=== PATIENT | male | born 1965 | race Caucasian/White ===

== ENCOUNTER 2016-06-20 19:33 | Emergency (ER) | payer OTHER ==
[2016-06-20 20:03] VITALS: BP 119/77
--- NOTE | 2016-06-20 21:01 | ED HAND/WRIST INJURY COMPLAINT ---
History of Present Illness General Chief Complaint: Hand or Wrist Injury Stated Complaint: PT HAS A SWOLLEN PINKIE FINGER Source: patient, old records Exam Limitations: no limitations Vital Signs & Intake/Output Vital Signs & Intake/Output Vital Signs Date Time Temp Pulse Resp B/P B/P Pulse O2 O2 Flow FiO2 Mean Ox Delivery Rate 06/20 2002 98.3 87 22 119/77 100 Allergies Coded Allergies: MDX - Avocados (AVOCADOS) (UNKNOWN 08/06/12) MDX - Cat Hair Extract (Cat Hair Extract) (CATS 06/21/11) Triage Note: PER PT L THUMB, BASE PAIN WHEN TWISTING JARS FOR MONTHS,ALSO ON 05/25 TRIPPED OVER DOG, SUSTAINED INJURY, 5TH DIGIT REMAINS DEFORMED LARGER THAN L 5TH DIGIT. OBVIOUS DEFORMITY NOTED BUT ALIGNED. Triage Nurses Notes Reviewed? yes Occurred: LAST MONTH Duration: intermittent, waxing and waning, X 1 MONTH Timing: recent history Injury Environment: home Severity: mild, moderate Severity Numbers: 5 Pain/Injury Location: Right: 5th finger. Left: 1st finger. Context: blow Method of Injury: direct blow Modifying Factors: Worsens With: movement. Associated Symptoms: none HPI: 51-year-old male presents emergency room for evaluation complaining of a one- month history of left first finger pain. He denies any known injury or trauma or states pain radiates from the IP joint to the base of his hand. He is right- hand dominant he denies any swelling difficulty with range of motion he is not taken anything for his symptoms. He is also complaining of right fifth finger pain after he states he tripped over his dog sustaining injury when his finger bent backwards when it hit a animal gait. This injury occurred on May 25. He states that is been swollen deformed and has been causing him pain with limited range of motion. He has not sought care for the symptoms are taken anything for this as well. He denies any other hand or finger injury (DAWN BETHEA) Past History Travel History Traveled to [place] past 21 day No Medical History Any Pertinent Medical History? see below for history Neurological: NONE EENT: NONE Cardiovascular: NONE Respiratory: asthma Gastrointestinal: NONE Hepatic: NONE Renal: NONE Musculoskeletal: NONE Psychiatric: NONE Endocrine: NONE History of MRSA: No History of VRE: No History of CDIFF: No Pneumonia Vaccine: 08/06/12 Surgical History Surgical History: none Psychosocial History Who do you live with Spouse What is your primary language Danish Tobacco Use: Never used Family History Hx Contributory? No (DAWN BETHEA) Review of Systems Review of Systems Constitutional: Reports: no symptoms, see HPI. All Other Systems: Reviewed and Negative Comments Review of systems: See HPI, All other systems negative. Constitutional, no chills no fever, no malaise HEENT:no sore throat no congestion, no ear pain Cardiovascular: No chest pain , no palpitation Skin: no rashes, no change in skin Respiratory: No dyspnea no cough no sputum GI: No nausea no vomiting, no diarrhea, : No dysuria No hematuria, no frequency, no discharge Muscle skeletal: joint pain, no joint swelling, no back pain, no neck pain, Neurologic: No numbness no headache Psych: No stress Heme/endocrine: No bruising Immunology: No lymphadenopathy (DAWN BETHEA) Physical Exam Physical Exam General Appearance: well developed/nourished, no apparent distress, alert, awake , comfortable Hand Left: normal inspection, normal range of motion Hand Right: normal range of motion Comments: Well-developed well-nourished patient in no apparent distress. HEENT: Atraumatic, extraocular motion intact Neck: Supple, FROM Back: FROM Cardiovascular: Regular rate and rhythms no murmurs rubs or gallops, Respiratory:. No respiratory distress. Patient speaking in full complete sentences. Breath sounds clear to auscultation bilaterally: NO W/R/R Shoulder: Atraumatic/Stable. FROM . Elbow: Atraumatic/stable. FROM. No laxity Upper arm/Forearm: Atraumatic. Nontender. 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 Sensation patient has both active and passive full range of motion capillary refills within normal limits. Sensation, the left hand is atraumatic nontender, there is no ecchymosis swelling over the left first finger Atraumatic/stable. Skin intact. FROM Pulses: Normal/equal radial pulses bilaterally. Brisk cap refill Lower Extremities: full range of motion Neuro: awake, alert, and oriented to person, place and time. There were no obvious focal neurologic abnormalities. Skin: Warm & dry;No appreciable rash on exposed skin Psych: Mood affect normal, normal memory normal judgment. (DAWN BETHEA) Progress Differential Diagnosis: contusion, compartment syndrome, dislocation, fracture, sprain, TENDON INJURY Plan of Care: Orders Procedure Date/time Status Durable Medical Equipment 06/20 2156 Active X-rays ordered patient is declining anything when offered I discussed with the patient at length all of their results. Right fifth finger was splinted I had an extensive conversation regarding need for close follow up with their primary care physician this week as well as return precautions. I answered all of their questions, they feel comfortable with the plan and follow- up care. . Finger splint was applied to the right fifth finger and race applied to the left hand (DAWN BETHEA) Diagnostic Imaging: Viewed by Me: Radiology Read. Discussed w/RAD: Radiology Read. Radiology Impression: PATIENT: NORMA GREENFIELD PRESENT AGE: 51 PATIENT ACCOUNT NO: [id number] : 65 LOCATION: [facility] ORDERING PHYSICIAN: DAWN REHMAN SERVICE DATE: 06/20/16 EXAM TYPE: RAD - XRY-FINGERS, LEFT; XRY-FINGERS, RIGHT Indication: Fall EXAMINATION: Left first digit, right fifth digit Left first digit, 3 views. No evidence for fracture or dislocation. Degenerative change at the base of the thumb. Right fifth digit 3 views. Linear lucency along the base of the middle phalanx at the level of the PIP joint ventrally. May represent a small avulsion fracture IMPRESSION: No acute fracture or dislocation left thumb. Question fracture involving the ventral aspect of the PIP joint fifth digit right. Point palpation recommended DICTATED BY: MAYA NORMAN MD DATE/TIME DICTATED:06/20/162142 DATA SYSTEMS ANALYST:LADRAIUS DATE/TIME TRANSCRIBED:06/20/162142 CONFIDENTIAL, DO NOT COPY WITHOUT APPROPRIATE AUTHORIZATION. <Electronically signed in Other Vendor System> SIGNED BY: MAYA NORMAN MD 06/20/162157 (DAWN BETHEA) Departure Departure Time of Disposition: 2207 Disposition: HOME OR SELF CARE Condition: Stable Clinical Impression Primary Impression: Finger fracture Secondary Impressions: Finger sprain Referrals: DINAH MELENDEZ,TERESA Melara (PCP/Family) Additional Instructions: REST, ICE, TYELNOL OR MOTRIN. KEEP FINGER SPLINTED. FOLLOW UP WITH YOUR PMD, RETURN TO THE ER WITH ANY CONCERNS Departure Forms: Customer Survey General Discharge Information (MAC REHMAN,DAWN) PA/DEVELOPMENT SPECIALIST Co-Sign Statement Statement: ED Attending supervision documentation- [] I saw and evaluated the patient. I have also reviewed all the pertinent lab results and diagnostic results. I agree with the findings and the plan of care as documented in the PA's/DEVELOPMENT SPECIALIST's documentation. [X] I have reviewed the ED Record and agree with the PA's/DEVELOPMENT SPECIALIST's documentation. [] Additions or exceptions (if any) to the PAs/DEVELOPMENT SPECIALIST's note and plan are summarized below: [] (MAXIMUS MELENDEZ,EVERTON)
--- NOTE | 2016-06-20 21:58 | RADIOLOGY REPORT ---
Indication: Fall EXAMINATION: Left first digit, right fifth digit Left first digit, 3 views. No evidence for fracture or dislocation. Degenerative change at the base of the thumb. Right fifth digit 3 views. Linear lucency along the base of the middle phalanx at the level of the PIP joint ventrally. May represent a small avulsion fracture IMPRESSION: No acute fracture or dislocation left thumb. Question fracture involving the ventral aspect of the PIP joint fifth digit right. Point palpation recommended
== END 2016-06-20 22:21 ==
LOC: ERH 19:33
DX: S62.616A Displaced fracture of proximal phalanx of right little finger, initial encounter for closed fracture (principal); S63.619A Unspecified sprain of unspecified finger, initial encounter; W01.0XXA Fall on same level from slipping, tripping and stumbling without subsequent striking against object, initial encounter; Y93.9 Activity, unspecified; Y92.9 Unspecified place or not applicable
CPT/HCPCS: 73140-LT; 73140-RT

== ENCOUNTER 2017-03-06 23:06 | Emergency (ER) | payer OTHER ==
[~2017-03-06] VITALS: Ht 170.2 cm; Wt 83.9 kg
[~2017-03-06 23:06] MED LIST: DULERA 200 MCG/13 GM INH; LEVAQUIN750 M1 PO; PROAIR HFA8.5 GM INH
--- NOTE | 2017-03-07 00:02 | ED DYSPNEA/ASTHMA COMPLAINT ---
History of Present Illness General Chief Complaint: Dyspnea (COPD, CHF, Other) Stated Complaint: SOB Source: patient Exam Limitations: no limitations Vital Signs & Intake/Output Vital Signs & Intake/Output Vital Signs Date Time Temp Pulse Resp B/P B/P Pulse O2 O2 Flow FiO2 Mean Ox Delivery Rate 03/07 0100 97.8 88 18 116/70 97 Room Air 03/07 0056 95 Room Air 03/07 0035 96 03/06 2314 98.0 102 18 118/74 96 Room Air ED Intake and Output 03/07 0000 03/06 1200 Intake Total Output Total Balance Patient 185 lb Weight Allergies Coded Allergies: avocado (NAUSEA / VOMITING 12/13/16) cat dander (CATS 12/13/16) Reconcile Medications Albuterol Sulfate (Proair Hfa) 90 MCG HFA.AER.AD 2 PUF INH Q4-6 PRN PRN ASTHMA (Reported) Levofloxacin (Levaquin) 750 MG TABLET 1 TAB PO DAILY BRONCHITIS Mometasone/Formoterol (Dulera 200 Mcg/5 Mcg Inhaler) 200 MCG-5 MCG/ACTUATION HFA.AER.AD 2 PUF INH BID ASTHMA Mometasone/Formoterol (Dulera 200 Mcg/5 Mcg Inhaler) 200 MCG-5 MCG/ACTUATION HFA.AER.AD 2 PUF INH BID asthma Prednisone (Deltasone) 20 MG TABLET 1 TAB PO BID asthma Triage Note: PT TO ER C/C ASTHMA EXACERBATION. USED ALBUTEROL NEB 1 HR AGO WITHOUT RELIEF. PT IN NO APPARENT DISTRESS, RA SAT 96% SPEAKING IN CLEAR FULL SENTENCES Triage Nurses Notes Reviewed? yes Onset: Gradual Duration: week(s): Timing: recent history Severity: moderate Prior Episodes/Possible Cause: occasional episodes HPI: 51-year-old male with history of asthma presents emergency department complaining of asthma exacerbation. Patient complains of nasal congestion, cough, dyspnea and wheezing worsening for 1 week. Patient states his cough is intermittent productive yellow sputum. Patient states that he has been using home DuoNeb and albuterol inhaler however his symptoms are persistent. He has not tried any pupq-roe-decnswy medications. Patient has a history of severe asthma exacerbations and has required intubation 3 times in the past, last 2007. Patient states that his current symptoms feel "mild" compared to prior exacerbations. He denies fevers, chills, chest pain, abdominal pain, nausea, vomiting, ear pain, sore throat. (Trisha Quarles) Past History Travel History Traveled to [place] past 21 day No Medical History Any Pertinent Medical History? see below for history Neurological: NONE EENT: NONE Cardiovascular: NONE Respiratory: asthma Gastrointestinal: NONE Hepatic: NONE Renal: NONE Musculoskeletal: NONE Psychiatric: NONE Endocrine: NONE Blood Disorders: NONE Cancer(s): NONE FOREST ECOLOGIST/Reproductive: NONE History of MRSA: No History of VRE: No History of CDIFF: No Surgical History Surgical History: none Psychosocial History Who do you live with Spouse What is your primary language Romanian Tobacco Use: Never used Family History Hx Contributory? No (Trisha Quarles) Review of Systems Review of Systems Constitutional: Reports: no symptoms. EENTM: Reports: see HPI. Respiratory: Reports: see HPI. Cardiovascular: Reports: no symptoms. GI: Reports: no symptoms. Genitourinary: Reports: no symptoms. Musculoskeletal: Reports: no symptoms. Skin: Reports: no symptoms. Neurological/Psychological: Reports: no symptoms. Hematologic/Endocrine: Reports: no symptoms. Immunologic/Allergic: Reports: no symptoms. All Other Systems: Reviewed and Negative (Trisha Quarles) Physical Exam Physical Exam General Appearance: well developed/nourished, no apparent distress, alert, awake Head: atraumatic, normal appearance Eyes: Bilateral: normal appearance. Ears, Nose, Throat: normal pharynx, hearing grossly normal, no sinus tenderness Neck: normal inspection, supple, full range of motion Respiratory: no respiratory distress, expiratory wheezing bilaterally Cardiovascular: regular rate/rhythm Extremities: normal inspection, normal range of motion Neurologic/Psych: awake, alert, oriented x 3 Skin: intact, normal color, warm/dry Core Measures ACS in differential dx? No CVA/TIA Diagnosis No Sepsis Present: No Sepsis Focused Exam Completed? No (Trisha Quarles) Progress Differential Diagnosis: asthma, bronchitis, costochondritis, CHF, COPD, pulmonary embolism, pneumonia, pneumothorax Plan of Care: Current Medications Sig/Mercy Start time Last Medication Dose Stop Time Status Admin Albuterol Sulfate 3 ML ONCE ONE 03/07 14 UNVr (Proventil) 03/07 15 Patient was offered chest x-ray to evaluate for pneumonia however he is declining at this time. Patient has breath sounds bilaterally, no chest pain, low suspicion for pneumonia or pulmonary embolism. Patient has expiratory wheezes throughout lung exam. Patient medicated with DuoNeb. The emergency department and IV Solu-Medrol. Patient is requesting refill of his Dulera inhaler as he is almost out. The patient is sitting comfortably on the stretcher, no respiratory distress, nontoxic appearing. Repeat lung examination shows improvement in wheezing following DuoNeb treatment. Patient feels ready to go home at this time. He will follow-up with his lurer. Patient given strict return precautions. Patient ambulating without difficulty, no acute distress. The patient agrees with the plan of care. Initial ED EKG: none (Trisha Quarles) Departure Departure Disposition: HOME OR SELF CARE Condition: Stable Clinical Impression Primary Impression: Asthma exacerbation Qualifiers: Asthma severity: moderate Asthma persistence: unspecified Qualified Code: J45.901 - Unspecified asthma with (acute) exacerbation Secondary Impressions: Dyspnea Qualifiers: Dyspnea type: unspecified Qualified Code: R06.00 - Dyspnea, unspecified Nasal congestion Referrals: Ines MELENDEZ,Yesi Melara (PCP/Family) Additional Instructions: Take full course of steroids. Take Mucinex DM as prescribed as needed for congestion. Use albuterol inhaler and DuoNeb as instructed. Also take Dulera inhaler as directed. Follow up with your primary care physician. Return to the emergency Department with any worsening symptoms or other concerns. Departure Forms: Customer Survey General Discharge Information Prescriptions: Current Visit Scripts Prednisone (Deltasone) 1 TAB PO BID #10 TAB Mometasone/Formoterol (Dulera 200 Mcg/5 Mcg Inhaler) 2 PUF INH BID #13 GM (Trisha Quarles) PA/DBAS Co-Sign Statement Statement: ED Attending supervision documentation- I saw and evaluated the patient. I have also reviewed all the pertinent lab results and diagnostic results. I agree with the findings and the plan of care as documented in the PA's/DBAS's documentation. x I have reviewed the ED Record and agree with the PA's/DBAS's documentation. [] Additions or exceptions (if any) to the PAs/DBAS's note and plan are summarized below: [] (Mahad MELENDEZ,Niko) Critical Care Note Critical Care Note Critical Care Time: non-applicable (Trisha Quarles)
[2017-03-07] MEDS ORDERED: DULERA 200 MCG/13 GM INH (00:20)
[2017-03-07] MEDS ORDERED: DELTASONE20 MG PO (00:20)
[2017-03-07 01:00] VITALS: BP 116/70
== END 2017-03-07 01:05 ==
LOC: ERH 23:06
DX: J45.901 Unspecified asthma with (acute) exacerbation (principal)
CPT/HCPCS: 1263; 1395; 96374; J2930